=== PATIENT | male | born 1990 | race Hispanic/Latino ===

== ENCOUNTER 2018-09-26 08:14 | Emergency (ER) | payer SELFPAY ==
[2018-09-26] MEDS ORDERED: TETRACAINE HCL 0.5% 4 ML OPHTH SOLN ONE (08:38)
[2018-09-26] MEDS ORDERED: ERYTHROMYCIN BASE 0.5% OPHTH OINT 1 GM TUBE ONE (08:38)
[2018-09-26] MEDS ORDERED: FLUORESCEIN SODIUM 1 STRIP STRIP ONE (10:21)
== END 2018-09-26 10:51 | disposition home or self-care (01) ==
LOC: EDH 08:14
DX: T15.01XA Foreign body in cornea, right eye, initial encounter (principal); X58.XXXA Exposure to other specified factors, initial encounter; Y93.89 Activity, other specified; Y92.89 Other specified places as the place of occurrence of the external cause; Y99.8 Other external cause status

== ENCOUNTER 2022-05-09 09:59 | Emergency (ER) | payer OTHER ==
[~2022-05-09] VITALS: Ht 165.1 cm; Wt 74.8 kg
[2022-05-09 10:03] VITALS: BP 133/85
[2022-05-09] MEDS: IBUPROFEN 800 MG TAB ONE (10:51)
[2022-05-09] MEDS: DIPHENHYDRAMINE HCL 25 MG CAPSULE ONE (10:51)
[2022-05-09] MEDS: FAMOTIDINE 20MG TAB ONE (10:51)
[2022-05-09] MEDS ORDERED: FAMOTIDINE 20MG TAB PO ONE (11:00)
[2022-05-09] MEDS ORDERED: DIPHENHYDRAMINE HCL 25 MG CAPSULE PO ONE (11:00)
[2022-05-09] MEDS ORDERED: IBUPROFEN 800 MG TAB PO ONE (11:00)
[2022-05-09] MEDS ORDERED: LORA-868 PO (11:25)
== END 2022-05-09 11:34 | disposition home or self-care (01) ==
LOC: EDH 09:59
DX: H92.02 Otalgia, left ear (principal); R42 Dizziness and giddiness; Z20.822 Contact with and (suspected) exposure to COVID-19; Z79.1 Long term (current) use of non-steroidal anti-inflammatories (NSAID)
CPT/HCPCS: 99284; 87635; 87804 ×2; Q0163; C9803